=== PATIENT | male | born 1950 ===

== ENCOUNTER 2024-08-29 21:56 | Emergency (ER) | payer MEDICARE ==
[~2024-08-29] VITALS: Ht 182.9 cm; Wt 95.2 kg
[2024-08-29 22:44] LABS: BASOPHILS ABSOLUTE AUTO 0.02 K/mm3 (0.00-0.23); BASOPHILS PERCENT AUTO 0 % (0-2); EOSINOPHILS ABSOLUTE AUTO 0.18 K/mm3 (0.00-0.68); EOSINOPHILS PERCENT AUTO 3 % (0-6); Hematocrit 31.3 % (37.0-53.0); Hemoglobin 10.4 g/dL (13.5-17.5); IMMATURE GRAN ABSOLUTE AUTO 0.04 K/mm3 (0.00-0.10); IMMATURE GRAN PERCENT AUTO 1 % (0-1); LYMPHOCYTES ABSOLUTE AUTO 1.99 K/mm3 (0.84-5.20); LYMPHOCYTES PERCENT AUTO 34 % (21-46); MONOCYTES ABSOLUTE AUTO 0.54 K/mm3 (0.16-1.47); MONOCYTES PERCENT AUTO 9 % (4-13); Mean Corpuscular HGB 29.3 pg (26.0-34.0); Mean Corpuscular HGB Conc 33.2 g/dL (31.5-36.5); Mean Corpuscular Volume 88 fL (80-100); Mean Platelet Volume 9.3 fL (9.1-12.4); NEUTROPHILS ABSOLUTE AUTO 3.07 K/mm3 (1.96-9.15); NEUTROPHILS PERCENT AUTO 53 % (41-73); Platelet Count 300 K/mm3 (150-400); RDW Coefficient Variation 16.3 % (11.7-14.2); RDW Standard Deviation 53.2 fL (35.1-46.3); Red Blood Cell Count 3.55 M/mm3 (4.30-5.90); White Blood Cell Count 5.84 K/mm3 (4.00-11.30)
[2024-08-29 23:03] LABS: Albumin, Blood 3.1 g/dL (3.4-5.0); Albumin/Globulin Ratio 0.9 (0.8-1.8); Bilirubin, Total 0.1 mg/dL (0.1-1.0); Bun/Creatinine Ratio 15.6 (12.0-20.0); Calcium, Blood 8.5 mg/dL (8.5-10.1); Creatinine, Blood 1.28 mg/dL (0.60-1.20); Globulin, Blood 3.6 g/dL (2.2-4.0); Potassium, Blood 3.5 mmol/L (3.5-5.5); Total Protein, Blood 6.7 g/dL (6.4-8.2)
[2024-08-30 01:05] LABS: Base Excess Venous -4.8 mmol/L; Bicarbonate Venous 20.2 mmol/L (24.0-30.0); PCO2 Venous 45.2 mmHg (38-42); pH Blood Venous 7.29 (7.34-7.37)
[2024-08-30 01:34] LABS: Salicylate <1.7 mg/dL (2.8-20.0)
[2024-08-30 01:44] LABS: Acetaminophen, Random <2.0 ug/mL (10.0-30.0)
[2024-08-30 01:57] LABS: Source, Urine Clean Catch
[2024-08-30 02:05] LABS: Bilirubin, Urine Neg (Neg); Blood, Urine 1+ (Neg); Glucose Qualitative, Urine Neg (Neg); Ketones, Urine Neg (Neg); Leukocyte Esterase, Urine Neg (Neg); Nitrite, Urine Neg (Neg); Protein, Urine Neg (Neg); Urobilinogen, Urine NORM (Normal)
[2024-08-30 02:32] LABS: U Amphetamine Screen DETECTED; U Barbituate Screen Not Detected; U Benzodiazapine Screen DETECTED; U Buprenorphine Screen Not Detected; U Cannabinoids Screen Not Detected; U Cocaine Screen Not Detected; U Methadone Screen Not Detected; U Methamphetamine Screen DETECTED; U Opiates Screen Not Detected; U Oxycodone Screen Not Detected; U Phencyclidine Screen Not Detected
[2024-08-30 02:38] LABS: Appearance, Urine Clear (Clear); Color, Urine Pale Yellow (P-Yellow)
[2024-08-30 02:39] LABS: Bacteria Few /hpf; Red Blood Cells, Urine 0-2 /hpf (0-2); Squamous Epithelial Cells Few /hpf (Few); White Blood Cells, Urine 0-2 /hpf (0-5)
[2024-08-30] MEDS ORDERED: NS 1,000 ML IV SCH (05:40)
[2024-08-30] MEDS ORDERED: Lidocaine 4% 1 Patch TOP ONE (06:10)
== END 2024-08-30 10:19 | disposition home or self-care (01) ==
LOC: ER 21:56
PROVIDERS: Emergency Medicine
DX: R41.82 Altered mental status, unspecified (principal); F19.10 Other psychoactive substance abuse, uncomplicated
CPT/HCPCS: 51701; 70450; 72125; 80053; 80320; 81001; 82140; 82803; 84443; 85025; 93005; 93010; 99285-25; A9270; G0480; J7030

== ENCOUNTER 2024-08-30 11:03 | Emergency (ER) | payer OTHER ==
[~2024-08-30] VITALS: Ht 182.9 cm; Wt 68.0 kg
== END 2024-08-30 15:50 | disposition home or self-care (01) ==
LOC: ER 11:03
DX: F10.90 Alcohol use, unspecified, uncomplicated (principal); Z59.00 Homelessness unspecified
CPT/HCPCS: 99283